=== PATIENT | female | born 2000 ===

== ENCOUNTER 2024-01-16 08:42 | Emergency (ER) | payer SELFPAY ==
[~2024-01-16] VITALS: Ht 165.1 cm; Wt 71.9 kg
[2024-01-16 08:42] VITALS: BP 112/60; TEMP 97.8; O2SAT 100
== END 2024-01-16 11:08 | disposition left against medical advice (07) ==
LOC: M ED 08:42
DX: Z53.21 Procedure and treatment not carried out due to patient leaving prior to being seen by health care provider (principal)